=== PATIENT | male | born 1980 | race Caucasian/White ===

== ENCOUNTER → 2024-04-15 16:07 | Outpatient (CLI) | payer OTHER, SELFPAY ==
--- NOTE | 2024-04-15 16:09 | DI.MRI.S_ITS ---
PROCEDURE: MR BRAIN (IAC) WWO CON INDICATIONS: HEARING LOSS TECHNIQUE: Noncontrast sagittal T1 spin echo, axial FLAIR, axial gradient echo, axial diffusion and ADC through the brain. Axial thin-slice 3D CISS, coronal TruFISP, axial T1 spin echo with fat saturation through the internal auditory canals. After the administration of contrast, thin slice axial and coronal T1 spin echo with fat saturation through the internal auditory canals, and axial and coronal and sagittal T1 spin echo with fat saturation through the brain. COMPARISON: None. FINDINGS: Image quality: Excellent. Cerebellopontine angles: No cerebellopontine angle masses. Inner ear structures appear normally formed. No suspicious enhancement in the internal auditory canal or along the course of the 7th cranial nerve. CSF spaces: Ventricles are normal in size and shape. There is a mild arachnoid cyst seen along the posterior aspect of the posterior fossa. Basal cisterns are patent. Brain: No intracranial bleeds or mass effects. Lynn-white matter interface is intact. No abnormal intracranial enhancement. Diffusion weighted images demonstrate no acute ischemic insults. Brainstem appears normal. Normal intravascular flow voids are present. Skull and face: Calvarial marrow signal is normal. Orbits appear normal. Sinuses: Sinuses and mastoids are clear. IMPRESSION: No significant abnormality is seen. Specifically, no masses or abnormal enhancement are seen within the cerebellopontine angle cisterns or within the internal auditory canals. Dictated by: Cullen Alonzo M.D. on 04/16/2024 at 13:03 Approved by: Cullen Alonzo M.D. on 04/16/2024 at 13:04
== END ==
PROVIDERS: Referring Provider Student in an Organized Health Care Education/Training Program; Visit Provider Student in an Organized Health Care Education/Training Program
DX: G93.0 Cerebral cysts (principal); H91.90 Unspecified hearing loss, unspecified ear
CPT/HCPCS: 70553; A9579